=== PATIENT | female | born 1985 | race Caucasian/White ===

== ENCOUNTER 2017-12-02 12:29 | Emergency (ER) | payer MEDICAID, OTHER ==
--- NOTE | 2017-12-02 13:36 | ED PDOC ---
HPI: Abdomen Time Seen by Provider: 12/02/17 13:11 Chief Complaint (Nursing): Abdominal Pain Chief Complaint (Provider): Abdominal pain History Per: Patient Additional Complaint(s): 32 yo female, no PMH, presents to ED for evaluation of epigastric pain radiating to right flank x 3 days. No fever or chills,no vomiting or diarrhea. Pt reports pain is worse after eating. Past Medical History Reviewed: Nursing Documentation, Vital Signs Vital Signs: Last Vital Signs Temp 97.6 F 12/02/17 13:00 Pulse 84 12/02/17 13:00 Resp 16 12/02/17 13:00 BP 122/76 12/02/17 13:00 Pulse Ox 98 12/02/17 13:00 - Medical History PMH: No Chronic Diseases - Surgical History Surgical History: No Surg Hx - Family History Family History: States: No Known Family Hx - Living Arrangements Living Arrangements: With Family - Social History Current smoker - smoking cessation education provided: No Alcohol: None Drugs: Denies - Home Medications Home Medications: Ambulatory Orders Medication Instructions Recorded Famotidine [Pepcid] 20 mg PO DAILY #20 tab 12/02/17 Ibuprofen [Motrin] 600 mg PO Q6 #20 tab 12/02/17 RX: traMADol [Ultram] 50 mg PO PRN PRN 12/02/17 - Allergies Allergies/Adverse Reactions: Allergies Allergy/AdvReac Type Severity Reaction Status Date / Time No Known Allergies Allergy Verified 08/13/12 01:02 Review of Systems ROS Statement: Except As Marked, All Systems Reviewed And Found Negative Gastrointestinal: Positive for: Nausea, Abdominal Pain Physical Exam - Reviewed Nursing Documentation Reviewed: Yes Vital Signs Reviewed: Yes - Physical Exam Appears: Positive for: Well, Non-toxic, No Acute Distress Head Exam: Positive for: ATRAUMATIC, NORMAL INSPECTION, NORMOCEPHALIC Skin: Positive for: Normal Color, Warm, DRY Eye Exam: Positive for: EOMI, Normal appearance, PERRL ENT: Positive for: Normal ENT Inspection Neck: Positive for: Normal, Painless ROM Cardiovascular/Chest: Positive for: Regular Rate, Rhythm Respiratory: Positive for: CNT, Normal Breath Sounds Gastrointestinal/Abdominal: Positive for: Normal Exam, Soft, Tenderness (RUQ (-) Sandy sign). Negative for: Distended, Guarding Back: Positive for: Normal Inspection Extremity: Positive for: Normal ROM Neurologic/Psych: Positive for: Alert, Oriented - Laboratory Results Result Diagrams: 12/02/17 13:50 12/02/17 13:50 - ECG O2 Sat by Pulse Oximetry: 98 Medical Decision Making Medical Decision Making: IV Toradol and Zofran administered for pain, good relief obtained labs resulted and reviewed with Pt who demonstrated full understanding US IMPRESSION: Cholelithiasis with shadowing gallstones identified. No pericholecystic fluid or gallbladder wall thickening noted. No appreciable ultrasound evidence of acute cholecystitis. On re-eval, pt doing well. reports no pain at this time pt educated on gallstones and indications for removal. given GI and surgical referrals. advised low fat diet, take medications as needed and return to ED if at anytime pain becomes severe or fever develops Disposition - Clinical Impression Clinical Impression: Cholelithiasis - Patient ED Disposition Is Patient to be Admitted: No - Disposition Referrals: Gary Watts MD [Medical Doctor] - Wilber Love MD [Staff Provider] - Disposition: Routine/Home Disposition Time: 19:00 Condition: STABLE Prescriptions: Famotidine [Pepcid] 20 mg PO DAILY #20 tab Ibuprofen [Motrin] 600 mg PO Q6 #20 tab Instructions: Gallstones (DC) Forms: [employer] (Swedish) Print Language: FINNISH
[2017-12-02 14:19] LABS: BASO % 0.4 % (0.0-2.0); EOS # 0.1 K/uL (0.0-0.7); EOS % 0.8 % (0.0-4.0); LYMPH # 2.5 K/uL (1.0-4.3); LYMPH % 29.5 % (20.0-40.0); MEAN CELL VOLUME 82.1 fl (81.0-99.0); MEAN CORPUSCULAR HEMOGLOBIN 26.3 pg (27.0-31.0); MEAN PLATELET VOLUME 7.9 fl (7.2-11.7); MONO # 0.5 K/uL (0.0-0.8); MONO % 5.5 % (0.0-10.0); NEUT # 5.3 K/uL (1.8-7.0); NEUT % 63.8 % (50.0-75.0); RBC 4.95 Mil/uL (3.80-5.20); WHITE BLOOD COUNT 8.3 K/uL (4.8-10.8)
[2017-12-02 14:24] LABS: SQUAMOUS EPITHIAL 5 /hpf (0-5); URINE BACTERIA RARE (<OCC); URINE BILIRUBIN NEGATIVE (NEGATIVE); URINE BLOOD NEGATIVE (NEGATIVE); URINE CLARITY SLIGHTY-CLOUDY (Clear); URINE COLOR YELLOW (YELLOW); URINE GLUCOSE (UA) NEG (Normal); URINE LEUKOCYTE ESTERASE NEG Leu/uL (Negative); URINE PROTEIN 30 mg/dL (NEGATIVE); URINE UROBILINOGEN 0.2-1.0 mg/dL (0.2-1.0)
[2017-12-02 14:30] LABS: ALB/GLOB RATIO 1.1 (1.0-2.1); ALBUMIN 4.3 g/dL (3.5-5.0); AMYLASE 107 U/L (30-110); BLOOD UREA NITROGEN 11 mg/dl (7-17); CALCIUM 9.5 mg/dL (8.4-10.2); GFR NON-AFRICAN AMERICAN > 60; LIPASE 153 U/L (23-300)
[2017-12-02 14:31] LABS: ALT/SGPT 33 U/L (9-52); AST/SGOT 36 U/L (14-36)
--- NOTE | 2017-12-02 17:28 | US ---
Date of service: 12/02/2017 HISTORY: RUQ pain COMPARISON: None. TECHNIQUE: Sonographic evaluation of the right upper quadrant of the abdomen. FINDINGS: LIVER: Measures 15.5 cm in length. Normal echogenicity of the liver parenchyma. No mass. No intrahepatic bile duct dilatation. GALLBLADDER: Calcified shadowing gallstones are identified in the gallbladder. Gallbladder wall measures 3-4 millimeters. No definite pericholecystic fluid is seen. No sonographic Potts's sign was elicited by the technologist. COMMON BILE DUCT: Measures 4-5 mm. No stones. No dilatation. PANCREAS: Unremarkable as visualized. No mass. No ductal dilatation. RIGHT KIDNEY: Measures 11 cm in length. Normal echogenicity. No calculus, mass, or hydronephrosis. AORTA: No aneurysmal dilatation. IVC: Unremarkable. OTHER FINDINGS: None . IMPRESSION: Cholelithiasis with shadowing gallstones identified. No pericholecystic fluid or gallbladder wall thickening noted. No appreciable ultrasound evidence of acute cholecystitis.
[2017-12-02 17:45] VITALS: BP 118/72; PULSE 72; RESP 20; TEMP 97.8
[2017-12-02 18:08] VITALS: O2SAT 98
== END 2017-12-02 17:45 | disposition home or self-care (01) ==
LOC: H.ER 12:29
DX: K80.20 Calculus of gallbladder without cholecystitis without obstruction (principal)
CPT/HCPCS: 76705; 80053; 81003; 81025; 82150; 83690; 85025; 96374; 96375; 99285; J1885; J2405